=== PATIENT | male | born 1955 | race Caucasian/White ===

== ENCOUNTER → 2017-12-09 13:23 | Outpatient (CLI) | payer MEDICARE, SELFPAY ==
[2017-12-09 14:10] VITALS: PULSE 60; PULSE 67
== END ==
PROVIDERS: PCP Family Medicine; Visit Provider Internal Medicine
DX: R06.02 Shortness of breath (principal)
CPT/HCPCS: 94060; 94640; 94726; 94729

== ENCOUNTER → 2018-02-18 12:34 | Outpatient (CLI) | payer MEDICARE, SELFPAY ==
--- NOTE | 2018-02-18 12:39 | CA_ITS ---
PROCEDURE: 2-D M-mode and color Doppler study INDICATIONS FOR THE TEST: Chest pain+ COPD Heart Murmur Tobacco Smoking+ Palpitations+ Fatigue Syncope Edema Hypertension+Diabetes Mellitus Rheumatic Fever SOB+OCHOA Obesity Hyperlipidemia+ Family History HD Additional History dizziness, CAD, SONJA, [place] PATIENT INFORMATION HEIGHT: 71 WEIGHT: 216 GENDER: Male B/P:133/62 2-D/M-MODE INTERPRETATION: 2-D MEASUREMENTS OBSERVED VALUES IN CMS Right Ventricular Dimension (RVDd) 2.0 Interventricular Septum (Thickness)(IVsd) 1.0 Left Ventricular Internal Dimensions(LVIDd) 5.3 Left Ventricular Posterior Wall (Thickness)(LVPWd) 1.0 Aortic Root 3.0 Aortic Cusp Separation 2.3 Left Atrial Dimensions (LAD) 3.1 2D 1. Left atrium is mildly enlarged, left ventricle is normal size, there is no concentric left ventricular hypertrophy, visually estimated ejection fraction 55% with no regional wall motion abnormality. 2. The right atrium and right ventricle are normal size and contractility. 3. The aortic valve is minimally thickened and fibrosed. 4. The mitral and tricuspid valve leaflets are minimally thickened. 5. The pulmonic valve is poorly visualized. 6. No significant pericardial effusion noted. DOPPLER INTERROGATION: Doppler interrogation of the aortic, mitral and tricuspid valvular presence of mild mitral and tricuspid regurgitation, tricuspid regurgitation jet velocity is insufficient for calculation of the right ventricular systolic pressure, grade 1 diastolic dysfunction seen without tissue Doppler evidence of raised left atrial pressure. CONCLUSION: 1. Mildly enlarged left atrium, normal left ventricular size, visually estimated ejection fraction 55% with no regional wall motion abnormality, grade 1 diastolic dysfunction seen without tissue Doppler evidence of raised left atrial pressure. 2. Mild mitral and tricuspid regurgitation 3. No significant pericardial effusion noted.
--- NOTE | 2018-02-18 12:39 | XR_ITS ---
XR chest 2V HISTORY: Chronic left-sided chest pain, smoker ITS.REASON: z ORDERING PHYSICIAN: Bertram Wagner MD PATIENT AGE: 62 years COMPARISON: None FINDINGS: There is a cardiac monitoring device along the anterior aspect of the left chest. The cardiovascular structures have an unremarkable appearance. There is evidence of old granulomatous disease. There is a faint nodular opacity overlying the left upper lobe and the second interspace measuring 7 mm. There is mild hyperinflation with attenuation of peripheral pulmonary vessels suggesting COPD. There are degenerative changes of the thoracic spine. Bone plate is present over the lower cervical spine IMPRESSION: COPD, old granulomatous disease. 7 mm nodular opacity left upper lobe. Consider follow-up chest in 2-3 months to confirm short-term stability
== END ==
PROVIDERS: PCP Family Medicine; Visit Provider Internal Medicine
DX: R06.02 Shortness of breath; F17.200 Nicotine dependence, unspecified, uncomplicated; I50.30 Unspecified diastolic (congestive) heart failure; I25.10 Atherosclerotic heart disease of native coronary artery without angina pectoris; R00.1 Bradycardia, unspecified
CPT/HCPCS: 71046; 93306

== ENCOUNTER → 2018-03-03 13:20 | Outpatient (CLI) | payer MEDICARE, SELFPAY ==
--- NOTE | 2018-03-03 13:23 | CT_ITS ---
CT chest wo con HISTORY: Pulmonary nodule, solitary pulmonary nodule, abnormal chest x-ray ITS.REASON: a ORDERING PHYSICIAN: Kaya Brock PATIENT AGE: 62 years COMPARISON: 02/18/2018 Technique: Axial images obtained with sagittal and coronal reformats. All CT scans at the facility use one or more dose reduction, viz: automated exposure control, ma/kV adjustment per patient size (including targeted exams where dose is matched to indication, i.e. head), or iterative reconstruction technique. FINDINGS: The study is performed without contrast due to patient's severe allergic history. No mediastinal or hilar mass or adenopathy. There are few scattered small lymph nodes within the mediastinum and evans some of which are calcified. There is minor coronary artery calcification noted. Normal heart size. No evidence of pericardial effusion. Scattered small nodes are present in the axilla. There is mild centrilobular emphysema with mild coarsening of bronchovascular markings which may be related to smoking lung disease. There is a calcified granuloma in the right lower lobe. There is a subpleural nodule in the left upper lobe anterolaterally corresponding to the radiographic abnormality. This is in direct continuity with the pleural surface of the lung and measures approximately 8 x 8 mm. This is not calcified. The margins are smooth.. No other pulmonary nodules are apparent. No effusions or infiltrates. Degenerative changes are present in the thoracic spine. There is a small sclerotic focus involving the T9 vertebral body posteriorly measuring 5 mm Upper abdominal images are unremarkable. IMPRESSION: 1. There is an 8 mm noncalcified pleural-based pulmonary nodule in the left upper lobe anterolaterally corresponding to the radiographic abnormality. This could represent a noncalcified granuloma or neoplasm. [address] follow-up is suggested and can be performed without contrast. Alternatively, PET CT may also be of further value. 2. Centrilobular emphysema with suspected smoking-related lung disease and old granulomatous disease.
[2018-03-03 13:46] LABS: Blood Urea Nitrogen 10 mg/dL (7-18); Estimated Glomerular Filt Rate 85 ml/min (>60); GFR (African American) 103 ML/MIN (>60)
== END ==
PROVIDERS: PCP Family Medicine; Visit Provider Nurse Practitioner Family
DX: R91.1 Solitary pulmonary nodule (principal)
CPT/HCPCS: 36415; 71250; 82565; 84520

== ENCOUNTER → 2019-03-11 11:33 | Outpatient (CLI) | payer MEDICARE, SELFPAY ==
[2019-03-11 13:21] LABS: Anion Gap 12.3 mEq/L (5-15); Blood Urea Nitrogen 11 mg/dL (7-18); Calcium 9.8 mg/dL (8.5-10.1); Carbon Dioxide 32 mmol/L (21.0-32.0); Chloride 102 mmol/L (98-107); Creatinine,Serum 0.98 mg/dL (0.70-1.30); Estimated Glomerular Filt Rate 77 ml/min (>60); GFR (African American) 93 ML/MIN (>60); Glucose 88 mg/dL (74-106); Potassium 4.3 mmoL/L (3.5-5.1); Sodium 142 mmol/L (136-145)
== END ==
PROVIDERS: Visit Provider Urology
DX: I11.9 Hypertensive heart disease without heart failure; I25.118 Atherosclerotic heart disease of native coronary artery with other forms of angina pectoris; I25.2 Old myocardial infarction; I50.32 Chronic diastolic (congestive) heart failure; I65.23 Occlusion and stenosis of bilateral carotid arteries; R06.02 Shortness of breath; R60.0 Localized edema; Z72.0 Tobacco use; E78.49 Other hyperlipidemia
CPT/HCPCS: 36415; 80048